=== PATIENT | female | born 1995 | race Caucasian/White ===

== ENCOUNTER 2019-07-21 12:37 | Emergency (ER) | payer OTHER, SELFPAY ==
[2019-07-21] VITALS (7 sets, daily range): BP systolic 124–151; BP diastolic 77–101; PULSE 106–126; RESP 16–22; TEMP 36.6; O2SAT 97–100; BMI 28.2
--- NOTE | 2019-07-21 13:08 | EKG12_ITS ---
Test Reason : HYPOGLYCEMIA Blood Pressure : / mmHG Vent. Rate : 122 BPM Atrial Rate : 122 BPM P-R Int : 128 ms QRS Dur : 082 ms QT Int : 324 ms P-R-T Axes : 058 076 017 degrees QTc Int : 461 ms Sinus tachycardia Possible Left atrial enlargement Borderline ECG Confirmed by TERRENCE MACIAS, JESUS ([id number]), index editor YADIRA BHATT ([id number]) on 07/24/2019 10:26:16 AM Referred By: DHARMESH Confirmed By:JESUS OCAMPO MD
--- NOTE | 2019-07-21 13:11 | NURSING ---
NO OLD EKGS
[2019-07-21 13:21] LABS: Bacteria 0 SEEN /hpf (None Seen); Mucous, Urine 0 SEEN /hpf (<or=2+); Squamous Epithelial Cells - UA 0 SEEN /hpf (5-10); White Blood Cells 0 SEEN /hpf (0-5)
[2019-07-21] MEDS: Ondansetron 4 MG/2 ML Vial IV (13:21)
[2019-07-21] MEDS: 0.9% Normal Saline 1,000 ML 999 ML IV ×3 (13:21→16:07)
[2019-07-21 13:25] LABS: Absolute Lymphocyte Count 1.12 X10^3/uL (0.83-4.51); Absolute Neutrophil Count 10.4 X10^3/uL (2.0-7.7); Basophil# 0.02 X10^3/uL; Basophil% 0.2 % (0-1); Lymphocyte # 1.12 X10^3/ul (4.0); Lymphocyte % 9.4 % (19-41); Mean Corpuscular Hgb 29.9 pg (27.0-32.0); Mean Corpuscular Volume 87.7 fL (81-99); Mean Platelet Vol. 10.4 fl (6.2-12.0); Monocyte# 0.35 X10^3/uL; Monocyte% 2.9 % (0-10); NRBC Flagged by Analyzer 0 % (0-5); Neutrophil # 10.41 X10^3/uL (2.7-7.7); Neutrophil % 87.2 % (47-70); Platelet Count 368 K/mm3 (150-450); RBC Distribution Width CV 11.3 % (11.6-14.6); RBC Distribution Width SD 36.3 fl (35.1-43.9); Red Blood Count 5.36 M/mm3 (4.2-5.4); White Blood Count 11.9 K/mm3 (4.4-11.0)
[2019-07-21 13:25] LABS: Bedside Glucose 289 mg/dL (70-110)
[2019-07-21 13:26] LABS: Color, Urine Straw (Yellow); Glucose, Dipstick 1000 mg/dl (Normal); Leukocyte Esterase-Dipstick Negative /ul (Negative); Nitrite-Dipstick Negative (Negative); Occult Blood-Urine Negative /ul (Negative); Protein-Dipstick 15 mg/dl (Negative); Specific Gravity, Urine 1.005 (1.002-1.030); Urine Bilirubin Dipstick Negative (Negative); Urine Clarity Clear (Clear); Urine Urobilinogen Normal (Normal)
[2019-07-21 13:34] LABS: Ketone-Dipstick 150 mg/dl (Negative)
[2019-07-21 13:38] LABS: Red Blood Cells-Urine 0-5 SEEN /hpf (0-5)
[2019-07-21 13:45] LABS: Anion Gap 14 (5-15); BUN 10 mg/dL (7-18); BUN/Creat Ratio 12.2 RATIO (10-20); Chloride 101 mmol/L (98-107); Creatinine, Serum 0.82 mg/dL (0.55-1.02); EST Glomerular Filtration Rate 92 mL/min (>60); Est Glom Filt Rate - Afr Amer 111 mL/min (>60); Estimated Creatinine Clearance 100.74 ml/min; Glucose 305 mg/dL (74-106); Potassium 3.9 mmol/L (3.5-5.1); Sodium Level 135 mmol/L (136-145)
[2019-07-21 14:23] LABS: Internal QC Validated? YES +Cl - CLEAR BKGD
[2019-07-21 14:34] LABS: Pregnancy, Serum, hCG Quali. NEGATIVE Negative
[2019-07-21] MEDS: Acetaminophen 500 MG Tablet 1000 MG PO (16:07)
[2019-07-21 16:11] LABS: Bedside Glucose 212 mg/dL (70-110)
[2019-07-21] MEDS: LORazepam 2 MG/ML Syringe 1 MG IV (16:45)
--- NOTE | 2019-07-21 16:50 | ED.VISSUMM ---
- ER Visit Summary Date of Service: 07/21/19 Chief Complaint: Elevated blood sugar History of Present Illness: The patient is a [address] Shah. 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 She reports that her blood sugar has been higher than usual over the past 2 days. She reports that this morning she feels lightheaded. She is been nauseated and vomited once. No blood or emesis. She denies any fever or chills. No chest pain, cough, or trouble breathing. No abdominal pain. She had a loose stool today. No blood in her stools or black tarry stools. No dysuria or frequency. Physical Examination: Vitals: 97.8, 151/111, 126, 16, 90% of September not hypoxic. General: Well-nourished and well-developed. Head: Normocephalic atraumatic. Neck: Supple, no lymphadenopathy. No JVD. Nontender. Cardiovascular: Tachycardic regular rhythm. No murmurs. Respiratory: No respiratory distress. Clear to auscultation bilaterally. Abdominal: Soft, nontender, nondistended, normal bowel sounds. No guarding, rebound, or peritoneal signs. Back: Nontender. Extremities: Nontender, no edema. Skin: Normal color, no rash. Neurologic: Alert and oriented ?3. Cranial nerves II through XII are intact. Normal strength and sensation. Psych: Normal affect. Test Results: EKG is sinus tach at [address] changes. CBC is marked for white count of 11.9 with a hemoglobin is 16.0, segmented feels 87, lymphocytes of 9. Chem-7 shows a sodium 135, CO2 of 20, glucose of 305. Her anion gap is normal at 14. She has small serum ketones. UA shows ketones and glucose. test is negative. Emergency Department Course and Treatment: Patient was given 3 L of normal saline. Repeat Accu-Chek is 212. She took 5 units of her home insulin subcu. Clinically I do not think that she is in DKA. She has a normal anion gap. I suspect that the ketones are actually from dehydration. She feels well and would like to go home. I did discuss that at this point I do not have an explanation for why she is hyperglycemic. When talking with this further she really reports that the only abnormal symptom she has otherwise is nasal congestion. States that she gets this each time the weather changes. Treatment Plan: Patient is very compliant and informed about her diabetes. She Darshan has a sliding scale. She is instructed to push fluids and use her insulin based on her sliding scale. Return to the emergency department for any worsening symptoms. She will give up be given a prescription for Zofran. Disposition: To home in improved and stable condition. Impression: 1. Type 1 diabetes mellitus. 2. Hyperglycemia. 3. Dehydration. This note was generated with [employer] software. It may contain incorrect words, spelling, and punctuation that were not noted in review of the chart prior to signing ED Disposition - Plan for ED Patient: Instructions: ED Diabetic Hyperglycemia Prescriptions: Lorazepam [Ativan] 1 mg PO TID PRN #10 tablet PRN Reason: Anxiety Ondansetron [Zofran Odt] 4 mg PO Q8H PRN PRN #10 tablet PRN Reason: Nausea Referrals: Arabella Emerson [Primary Care Provider] - 1 Day for another exam
== END 2019-07-21 18:06 | disposition home or self-care (01) ==
PROVIDERS: Emergency Provider Emergency Medicine; Family Provider Family Medicine; PCP Family Medicine
DX: E10.65 Type 1 diabetes mellitus with hyperglycemia (principal); E86.0 Dehydration; Z79.4 Long term (current) use of insulin
CPT/HCPCS: 80048; 81001; 82009; 82962; 84703; 85025; 93005; 96361; 96374; 96375; 99285; J7030; A4216; J2405